=== PATIENT | male | born 1980 | race American Indian/Alaskan Native ===

== ENCOUNTER 2018-07-13 03:53 | Emergency (ER) | payer SELFPAY ==
[2018-07-13 03:53] VITALS: BMI 22.3
[2018-07-13 04:05] VITALS: TEMP 98.2; O2SAT 100
--- NOTE | 2018-07-13 05:17 | ED PDOC ---
HPI: Psych/Substance Abuse Time Seen by Provider: 07/13/18 04:21 Chief Complaint (Nursing): Alcohol Ingestion ED Caveat: Intoxicated History Per: Patient Additional History Per: Patient, EMS Additional Complaint(s): Patient was brought to the ER after being found in the back of a cab asleep. States he was "out in [place]" prior to the cab. Denies drug use but admits to drinking. States that he had a splint on his left hand that is missing and has missing money. Denies new injury. Past Medical History Reviewed: Historical Data, Nursing Documentation, Vital Signs Vital Signs: Last Vital Signs Temp 98.2 F 07/13/18 04:02 Pulse 100 H 07/13/18 04:02 Resp 18 07/13/18 04:02 BP 130/77 07/13/18 04:02 Pulse Ox 100 07/13/18 04:02 - Medical History PMH: Asthma - Family History Family History: States: Unknown Family Hx - Immunization History Hx Tetanus Toxoid Vaccination: No Hx Influenza Vaccination: No Hx Pneumococcal Vaccination: No - Home Medications Home Medications: Ambulatory Orders Medication Instructions Recorded Fluticasone Propionate [Flovent 2 puff IH BID #1 inh 07/04/17 Hfa] Montelukast [Singulair] 10 mg PO 07/04/17 - Allergies Allergies/Adverse Reactions: Allergies Allergy/AdvReac Type Severity Reaction Status Date / Time No Known Allergies Allergy Verified 06/16/18 23:43 Review of Systems ROS Statement: Except As Marked, All Systems Reviewed And Found Negative Physical Exam - Reviewed Nursing Documentation Reviewed: Yes - Physical Exam Appears: Positive for: Well, Non-toxic, No Acute Distress Head Exam: Positive for: ATRAUMATIC, NORMAL INSPECTION, NORMOCEPHALIC Skin: Positive for: Normal Color, Warm, DRY Eye Exam: Positive for: EOMI, Normal appearance, PERRL ENT: Positive for: Normal ENT Inspection Neck: Positive for: Normal, Painless ROM Cardiovascular/Chest: Positive for: Regular Rate, Rhythm Respiratory: Positive for: CNT, Normal Breath Sounds Gastrointestinal/Abdominal: Positive for: Normal Exam, Soft Back: Positive for: Normal Inspection Extremity: Positive for: Normal ROM, Swelling (Mild swelling of L 5th finger, near full range of motion) Neurologic/Psych: Positive for: Alert, Oriented - ECG O2 Sat by Pulse Oximetry: 100 Pulse Ox Interpretation: Normal Medical Decision Making Medical Decision Making: Patient with alcohol abuse today, however currently A&O x 3, steady gait Patient refused splinting, advised that this could lead to further damage of finger Patient is sober enough to make decisions for himself. Disposition - Clinical Impression Clinical Impression: Alcohol abuse - Patient ED Disposition Is Patient to be Admitted: No - Disposition Referrals: Alcoholics Anonymous [Outside] Disposition: Routine/Home Disposition Time: 05:20 Condition: STABLE Instructions: Alcohol Abuse and Alcoholism (DC) Forms: [employer] ([place]ian)
[2018-07-13 06:55] VITALS: BP 129/75; PULSE 72; RESP 17
== END 2018-07-13 05:13 | disposition home or self-care (01) ==
LOC: H.ER 03:53
DX: F10.10 Alcohol abuse, uncomplicated (principal)